=== PATIENT | male | born 1965 | race Caucasian/White ===

== ENCOUNTER 2021-09-27 06:00 | Day surgery (SDC) | payer BC, OTHER ==
[~2021-09-27] VITALS: Ht 195.6 cm; Wt 97.5 kg
[~2021-09-27 06:00] MED LIST: COCONUT OIL1000 MG PO; COZAAR25 MG PO; DILTIAZEM 24HR180 MG PO; ELIQUIS5 MG PO; ICAPS AREDS2 C1 EACH PO; K-TAB ER20 MEQ PO; LEVOTHYROXINE100 MCG PO; LIOTHYRONINE SO5 MCG PO; MAGNESIUM CITR100 M1 PO; METOPROLOL SUCC50 MG PO; MULTI VITAMIN1 EACH PO; ODOR FREE GARL100 MG PO; OMEGA 3 FISH O1 EACH PO; OMEPRAZOLE20 MG PO; QUERCETIN DIHYDR1 GM MISC; TIKOSYN125 MCG PO; TYLENOL EXTRA500 MG PO; VITAMIN D3125 MC2 PO; WARFARIN SODIUM5 MG PO; ZINC50 MG PO
--- NOTE | 2021-09-27 08:11 | NUR ---
09/27/21 0811 Tirny Terry 0757-PATIENT ARRIVED TO PACU ON RA RR EVEN. PATIENT NONAROUSABLE LAYING LEFT LATERAL. IVF INFUSING. SINUS LILIANA. ABDOMEN SOFT. 0801-PATIENT REACTIVE TO VERBAL AND TACTILE STIMULI OPENING EYES REMAINS VERY DROWSY. WITH RNS ASSISTANCE PATIENT REPOSITIONED TO BACK BP READINGS WERE 79-80'S. BP TAKEN 94/53. 0805-PATIENT SLEEPING RR EVEN. 0810-PATIENT AWAKE DENIES PAIN OR NAUSEA. IVF INFUSING. ENCOURAGED TO PASS GAS. RA 99% RR EVEN
--- NOTE | 2021-09-27 11:52 | OR ---
[facility] [address], [place] [address] Signed DATE OF OPERATION: 09/27/2021 SURGEON: Rhina Fernandez MD PREOPERATIVE DIAGNOSIS: Screening. POSTOPERATIVE DIAGNOSIS: [id number] left-sided diverticulosis. PROCEDURE: Colonoscopy without biopsy. ESTIMATED BLOOD LOSS: None. INDICATIONS: Enriqueta is a 56-year-old gentleman asked to see me for his initial screening colonoscopy. He has been putting off his colonoscopy due to his heart history. He has paroxysmal atrial fibrillation and developed cardiomyopathy. He underwent cardiac ablation three years previously with Dr. Justin Tobin. He is still in that atrial fibrillation, but it is much better controlled. He follows along with his primary needle control cheniller, Dr. Grecia Singh. 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 He remains in excellent physical condition. His heart has recovered completely from his cardiomyopathy; however, he is very careful of his potassium and magnesium levels and getting enough sleep. He said otherwise his heart we will act up. He has no lower GI complaints. There is no family history of colon cancer or polyps. His last echocardiogram in 2020 showed his left ventricular ejection fraction at 55% to 60%. His preoperative EKG also showed normal sinus rhythm. In the office, I gave Enriqueta a booklet on colonoscopy. We had reviewed that in detail. His has been through three previous colonoscopies, consequently he is somewhat familiar with the process. He understands there is risk including, but not limited to gas bloating, crampy abdominal pain, bleeding, perforation requiring surgery, and missed diagnosis. Because of his significant cardiac history, he felt it was important to have monitored anesthesia care and I agreed with him. He had expressed understanding and wished to proceed. DESCRIPTION OF PROCEDURE: Enriqueta was taken into our endoscopy suite and placed in the left lateral decubitus position. He thought the bowel prep was a little hard on him yesterday. In that regard, he might benefit from a split bowel regimen with significant amount of Electronically Signed By: RHINA FERNANDEZ MD 09/27/21 1152 PATIENT NAME: ENRIQUETA RAYMOND OPERATIVE REPORT DATE OF : 61 REPORT #: [id number] PHYSICIAN: RHINA FERNANDEZ MD PCP: FORTUNATO CHEEK MD REPORT IS CONFIDENTIAL AND NOT TO BE RELEASED WITHOUT AUTHORIZATION [facility] [address], [place] [address] Signed electrolyte, liquid p.o. intake in between the bowel prep. Nevertheless, he was in sinus rhythm this morning. He was given monitored anesthesia care with propofol per our nurse brass molder. A digital rectal exam was performed. His prostate gland was moderately indurated, but not overly enlarged. No external hemorrhoids. No masses. Good sphincter tone. The adult colonoscope was introduced and advanced all around into the cecum under direct visualization of camera without difficulty. His prep was moderate. He did have a little bit of particulate stool matter in the right colon. I think just a little more prep and that would have been cleaned out quite nicely. Nevertheless, we could easily see his appendiceal orifice and the ileocecal valve. The scope was then slowly withdrawn. We took pictures throughout for photodocumentation. We can see that he has diverticula scattered throughout his left sigmoid colon, they were moderate in size, few in number, and scattered about. There were no polyps. The rectum was unremarkable. Upon retroflexion of scope, there was no additional pathology noted above the anal canal. After this, the gas was suctioned out, the colonoscope removed. Enriqueta tolerated the procedure quite well including his heart. RECOMMENDATIONS: Enriqueta can follow up in 10 years for repeat colonoscopy. He could consider a split bowel regimen in the future with a significant amount of electrolyte fluids before and after the bowel prep itself. Rhina Fernandez MD ALB/MODL /[id number] cc: MD Grecia Moreno MD Patient Chart Fortunato Cheek MD Copies: RHINA FERNANDEZ MD Electronically Signed By: RHINA FERNANDEZ MD 09/27/21 1152 PATIENT NAME: ENRIQUETA RAYMOND OPERATIVE REPORT DATE OF : 61 REPORT #: [id number] PHYSICIAN: RHINA FERNANDEZ MD PCP: FORTUNATO CHEEK MD REPORT IS CONFIDENTIAL AND NOT TO BE RELEASED WITHOUT AUTHORIZATION [facility] [address] [place] [address] Signed GRECIA SINGH MD, RUSSELL BARR MD ~ Electronically Signed By: RHINA FERNANDEZ MD 09/27/21 1152 PATIENT NAME: ENRIQUETA RAYMOND OPERATIVE REPORT DATE OF : 61 REPORT #: [id number] PHYSICIAN: RHINA FERNANDEZ MD PCP: FORTUNATO CHEEK MD REPORT IS CONFIDENTIAL AND NOT TO BE RELEASED WITHOUT AUTHORIZATION
--- NOTE | 2021-09-27 12:30 | NUR ---
PT ALERT, ORIENTED AND HERE FOR HIS FIRST SCOPE. PT DEALT WITH PREP-PT PLEASANT, ALL [facility] ASKED ANSWERED. GAVE BLESSING WILL FOLLOW
== END 2021-09-27 08:55 | disposition home or self-care (01) ==
LOC: DS 06:00 → OPS 06:00 → DS 06:45 → OPS 07:45 → DS 07:45 → OPS 08:55
PROVIDERS: ATTEND Colon & Rectal Surgery
PROC: 0DJD8ZZ Inspection of Lower Intestinal Tract, Via Natural or Artificial Opening Endoscopic (ICD-10-PCS; principal; 2021-09-27 06:45)
DX: Z12.11 Encounter for screening for malignant neoplasm of colon (principal); K57.30 Diverticulosis of large intestine without perforation or abscess without bleeding; I48.0 Paroxysmal atrial fibrillation; E03.9 Hypothyroidism, unspecified; I10 Essential (primary) hypertension; Z87.891 Personal history of nicotine dependence; Z79.01 Long term (current) use of anticoagulants; Z88.8 Allergy status to other drugs, medicaments and biological substances
CPT/HCPCS: J2001; J2704; J7121